=== PATIENT | male | born 1995 | race African-American/Black ===

== ENCOUNTER → 2022-09-09 10:36 | Outpatient (CLI) | payer OTHER, SELFPAY ==
--- NOTE | 2022-09-09 | DI.MRI.S_ITS ---
PROCEDURE: MR BRAIN (PITUITARY) WWO CON INDICATIONS: ABNORMAL LEVEL OF HORMONES TECHNIQUE: Noncontrast sagittal and axial FLAIR, axial gradient echo, axial diffusion and ADC through the brain. Thin-slice sagittal and coronal T1 spin echo, coronal T2 fast spin echo through the pituitary. After the administration contrast, optional dynamic coronal T1 spin echo, thin-slice coronal and sagittal T1 spin echo images through the pituitary fossa; axial and coronal and sagittal T1 spin echo with fat saturation through the brain. COMPARISON: None. FINDINGS: Image quality: Excellent. Pituitary Gland: Pituitary gland is normal in size. There are no areas of abnormal or delayed enhancement. Infundibulum is midline. CSF Spaces: Ventricles are normal in size and shape. Basal cisterns are patent. No extra-axial fluid collections. Brain: No intracranial bleeds or mass effects. No abnormal intracranial enhancement. [place]-white matter interface is intact. Diffusion weighted images demonstrate no acute ischemic insults. Brainstem is normal. Normal intravascular flow voids are present. Skull and face: Calvarial marrow is normal in signal. Orbits appear normal. Sinuses: Sinuses and mastoids are clear. IMPRESSION: 1. No acute intracranial process. Dictated by: Nanci Zarate M.D. on 09/09/2022 at 17:02 Approved by: Nanci Zarate M.D. on 09/09/2022 at 17:04
== END ==
PROVIDERS: Referring Provider Student in an Organized Health Care Education/Training Program; Visit Provider Student in an Organized Health Care Education/Training Program
DX: R89.1 Abnormal level of hormones in specimens from other organs, systems and tissues (principal)
CPT/HCPCS: 70553; A9579

== ENCOUNTER 2024-09-15 13:20 | Day surgery (SDC) | payer OTHER, SELFPAY ==
[2024-08-23 12:06] VITALS: BMI 29.0
--- NOTE | 2024-08-24 08:16 | PM.PREOP ---
Pre-operative Note Interval Note History & Physical reviewed/Exam performed by Physician: Yes Changes to H&P: No
--- NOTE | 2024-09-15 | PATH_ITS ---
[facility] Accession Number: [id number] No. of containers..02 Tissue . 01 Material submitted: . PART A: breast - RIGHT BREAST PART B: breast - LEFT BREAST . 01 Diagnosis: A. Breast, right, lumpectomy. - Benign breast tissue, negative for malignancy. - Weight: 13 grams. -- B. Breast, left, lumpectomy. - Benign breast tissue, negative for malignancy. - Weight: 9 grams. TXN 09/20/2024 0946 Local . 01 Electronically signed: . Tawphilip Flaherty MD, Pathologist NPI- [id number] . 01 Gross description: . A. Received in formalin with two patient identifiers and right breast, are two fragments of yellow lobulated fibroadipose tissue with no skin identified weighing 13 grams and aggregating to 5.4 x 4.8x 1.6 cm. The cut surfaces are yellow to white fibroadipose tissue with white fibrous tissue occupying approximately 10% of the cut surface. No lesions are identified, and client account representative sections are submitted in A1-A2. B. Received in formalin with two patient identifiers and left breast, is an unoriented, yellow, lobulated, fragment of fibroadipose tissue with no skin, weighing 9 grams, and measuring 3.5 x 3.2 x 2.6 cm, inked blue and sectioned to reveal fibroadipose tissue with dense white fibrous tissue occupying approximately 20% of the cut surface. No lesions are identified, and client account representative sections are submitted in B1-B2. . Fixation: The specimen was removed on 09/15/2024, time not provided. Cold ischemic time cannot be calculated. Total fixation time is approximately 65 hours. ([id number]) /MRV 09/17/2024 1820 Local . 01 Pathologist provided ICD-10: N62 . 01 CPT . 632242, [id number] Performed at: [address] [facility] [id number], [place], [place] [id number] MD Link Booker MD Phone: [phone]
[2024-09-15 14:12] VITALS: BP 124/70; PULSE 59; RESP 18; TEMP 36.4; O2SAT 100; BMI 28.3
[2024-09-15] MEDS: ACETAMINOPHEN 325 MG TABLET 975 MG PO (14:31)
[2024-09-15] MEDS: LACTATED RINGERS 1,000 ML 42 ML IV (14:33)
--- NOTE | 2024-09-15 16:07 | PM.PREOP ---
Pre-operative Note Interval Note History & Physical reviewed/Exam performed by Physician: Yes Changes to H&P: No
--- NOTE | 2024-09-15 16:11 | P.OP_ITS ---
Operative Date/Time/Diagnoses Date of procedure: 09/15/24 Time of procedure: 16:11 Pre-op diagnosis: Bilateral gynecomastia Post-op diagnosis: same Procedure & Clinicians Procedure: Bilateral lumpectomy Same procedure as scheduled: Yes Indications: Symptomatic bilateral gynecomastia Surgeon: Maurilio Bullard Multimedia Producer: Titus Chinchilla Anesthesia Type: General Operative Notes Findings: Bilateral gynecomastia Specimen(s): other (Right breast, left breast) Procedure in detail: The patient underwent needle localized prior to the operation. They were brought to the operating room and placed supine on the table. Bilateral lower extremity compression devices were applied. They were intubated with an LMA. They were prepped and draped in sterile fashion. Time-out was performed. Beginning on the right side curvilinear incision was made on the areola. The retro areolar tissue was grasped and dissected out circumferentially removing all gynecomastia. The incision was closed with a running 4-0 Monocryl suture followed by Dermabond. On the left areola, a curvilinear incision was made. The retroareolar tissue wa s grasped and dissected out circumferentially removing all gynecomastia. The incision was closed with a running 4-0 Monocryl followed by Dermabond. The sponge and instrument count was correct x2. They emerged from anesthesia and were transfered to recovery in stable condition. Complications: none Post-operative Condition: stable Disposition: same day surgery
--- NOTE | 2024-09-15 16:25 | SUR.OPER ---
Supine on padded OR bed, head on pillow, arms secured on padded arm boards at <90 degrees abduction, legs uncrossed, safety belt at thigh, tape over blanket over lower legs.
[2024-09-15] MEDS: CEFAZOLIN 2 GM/100 ML PREMIX 100 ML IV (16:34)
[2024-09-15] MEDS: BUPIVACAINE 0.5% (PF) 30 ML VIAL INJ (16:45)
[2024-09-15 17:23] VITALS: BP 101/64; PULSE 49; RESP 18; TEMP 36; O2SAT 100
[2024-09-15 17:29] VITALS: BP 100/63; PULSE 51; RESP 16; O2SAT 100
[2024-09-15 17:30] VITALS: BP 111/76; PULSE 57; RESP 18; O2SAT 98
[2024-09-15] MEDS: OXYCODONE IR 5 MG TABLET PO (17:33)
[2024-09-15] MEDS: ONDANSETRON 4 MG/2 ML INJ IV (17:33)
[2024-09-15 17:36] VITALS: BP 117/79; PULSE 53; RESP 18; TEMP 36.7; O2SAT 100
[2024-09-15 17:43] VITALS: BP 117/82; PULSE 46; RESP 12; O2SAT 99
== END 2024-09-15 18:03 | disposition home or self-care (01) ==
PROVIDERS: Referring Provider Surgery; Visit Provider Surgery
PROC: (CPT 19301; principal; 2024-09-15 15:15)
DX: N62 Hypertrophy of breast (principal)
CPT/HCPCS: 19300; J0690; J2250; J2405; J2704; J3010